=== PATIENT | female | born 2000 | race Caucasian/White ===

== ENCOUNTER 2018-12-06 06:00 | Inpatient (IN) | payer BC, MEDICAID ==
[2018-12-06] VITALS (40 sets, daily range): BP systolic 104–147; BP diastolic 52–96; PULSE 64–130; TEMP 98.2–98.9
[~2018-12-06] VITALS: Ht 162.6 cm; Wt 115.5 kg
--- NOTE | 2018-12-06 07:20 | NUR ---
Patient arrives ambulatory with FOB for scheduled induction of labor. Patient denies contractions, ROM or vaginal bleeding. Patient reports normal movement. Patient changes into gown, EFM explained and placed. VS obtained. Plan of care and induction reviewed with patient. Patient denies questions and agrees to plan. 0740- IV started in LW, labs obtained. LR infusing per protocol. Assessment completed. Consents explained and signed. 0745- Dr. Carcamo at bedside. Vertex presentation confirmed via bedside u/s by physician. SVE per provider /-2, BOW intact. Discussing plan of care for Pitocin induction and physician will AROM this afternoon. Patient deines questions. 0805- Pitocin and Anita administration reviewed. Patient denies questions. Pitocin started at 2 mU per protocol and order. Anita infusing. See EMAR>
[2018-12-06] MEDS ORDERED: PRENATAL (07:47)
[2018-12-06 08:13] LABS: BASO % 0.2 % (0.0-2.0); EOS % 0.2 % (0-4.0); GRAN # 7.3 (1.4-6.5); GRAN % 67.6 % (42.2-75.2); LYMPH # 2.8 (1.2-3.4); LYMPH % 25.6 % (20.0-51.0); MEAN CELL VOLUME 90 fl (80.0-95.0); MEAN CORPUSCULAR HEMOGLOBIN 30 pg (26.0-32.0); MEAN CORPUSCULAR HGB CONC 34 g/dl (33.0-37.0); MEAN PLATELET VOLUME 11.7 fl (7.4-10.4); MONO # 0.6 (0.1-0.6); MONO % 5.7 % (1.7-9.3); PLATELET COUNT 164 K/mm3 (130-400); RED BLOOD COUNT 3.96 M/mm3 (4.10-5.30); REDCELL DISTRIBUTION WIDTH-CV 15.3 % (11.5-14.5)
[2018-12-06 08:21] LABS: HEMATOCRIT 35.8 % (35.0-45.0)
--- NOTE | 2018-12-06 08:40 | NUR ---
0840- Prolonged FHR deceleration noted lasting approximately four minutes, intermittently to 80 bpm. Patient repositioned RL then LL, Pitocin discontinued and LR bolus infusing. Oxygen via simple mask at 10L. SVE by this RN unchanged. FHR recovers to 155 baseline following interventions. See physician notification. Patient updated on plan of care.
--- NOTE | 2018-12-06 10:50 | NUR ---
Patient up to bathroom. Back on EFM at 1055, FHR noted intermittently to 70 bpm. FHR deceleration noted lasting six minutes. Patient repositioned LL, then RL, SVE unchanged. Pitocin discontinued, Oxygen via simple mask at 10L and LR bolus infusing. Patient repositioned LL and Dr. Carcamo notified of deceleration and interventions. Patient repositioned RL and FHR recovers. Physician will come assess patient shortly. Patient updated on plan of care. Pitocin remains off and patient resting in RL position with oxygen via simple mask.
--- NOTE | 2018-12-06 11:25 | NUR ---
Dr. Carcamo on unit. Reviews FHR strip since admission, including intermittent decelerations. Oxygen removed. 1128- SVE per provider /. Patient consented for AROM. AROM by Dr. Carcamo for large amount of clear fluid. Pericare given and patient repostioned RL. Pitocin remains off. Patient updated on plan of care.
--- NOTE | 2018-12-06 11:55 | NUR ---
1155- Dr. Carcamo updated on patient, requesting epidural. Patient may have epidural. Cheo Bocanegra CRNA notified. LR bolus infusing. 1205- Patient assisted to sit on edge of bed. Difficulty tracing FHR due to maternal position and habitus. Cheo Bocanegra CRNA at bedside. 1216- Epidural test dose by Cheo Bocanegra CRNA. Patient tolerates well, no adverse reactions noted. See anesthesia record. 1220- Patient repositioned LL following epidural. Updated on plan of care and safety.
--- NOTE | 2018-12-06 13:05 | NUR ---
1305- Segundo catheter placed by Ca Salinas, instructor [employer] and [facility]. Prolonged FHR deceleration noted lasting approximately sixteen minutes intermittently to 60 bpm following patient being supine for segundo placement. This RN at bedside, repositioned LL, then RL. SVE /-1. Oxygen via simple mask at 10L and LR infusing. Patient repositioned LL, FSE placed by this RN at 1310. FSE cord replaced at 1323 following difficulty tracing despite correct placement of monitor. Multiple RNs at bedside adjusting u/s during this time, FHR noted intermittently at 60 bpm. Patient to knee chest position. Dr. Carcamo on unit in surgery, notified at 1310 and requested at bedside. Orders for Terbulatine. See EMAR. 1320- Dr. Carcamo called again and requested at bedside for continued prolonged FHR deceleration. Preop shave completed and patient prepped for suspected impending section delivery. 1322- Dr. Carcamo at bedside. SVE per provider /-2. FHR back to baseline at 1322, patient to RL position. Physician remains at bedside discussing plan of care with patient. 1344- Decision for section by patient and provider. Patient taken off EFM and transferred to [facility] OR 2. See intraoperative report.
[2018-12-07 02:26] VITALS: BP 126/63; PULSE 66; TEMP 97.9
[2018-12-07 05:30] VITALS: BP 105/44; PULSE 77
[2018-12-07 07:05] VITALS: BP 119/48; PULSE 76; TEMP 97.4
[2018-12-07 08:15] LABS: HEMATOCRIT 30.2 % (35.0-45.0); HEMOGLOBIN 9.7 g/dl (12.0-15.0)
[2018-12-07] MEDS ORDERED: PERCOCET 325 MG1 TA2 PO (10:41)
[2018-12-07] MEDS ORDERED: IBU600 MG PO (10:41)
[2018-12-07] MEDS ORDERED: FERRO-TIME325 MG PO (10:42)
[2018-12-07 11:20] VITALS: BP 116/52; PULSE 83; TEMP 97.3
[2018-12-07 17:15] VITALS: BP 127/57; PULSE 87; TEMP 98
[2018-12-07 20:30] VITALS: BP 133/51; PULSE 107; TEMP 98.3
[2018-12-08 08:00] VITALS: BP 122/51; PULSE 78; TEMP 97.8
[2018-12-08 16:45] VITALS: BP 128/59; PULSE 71; TEMP 97.8
[2018-12-08 23:00] VITALS: BP 128/56; PULSE 84
[2018-12-09 08:30] VITALS: BP 136/69; PULSE 82; TEMP 97.7
[2018-12-09] MEDS ORDERED: BREASTPUMP MC (11:24)
== END 2018-12-09 15:30 | disposition home or self-care (01) | DRG 788 ==
LOC: LDR 06:00 → OB 07:13
PROVIDERS: ADMIT Obstetrics & Gynecology
PROC: 10D00Z1 Extraction of Products of Conception, Low, Open Approach (ICD-10-PCS; principal; 2018-12-06)
PROC: 3E033VJ Introduction of Other Hormone into Peripheral Vein, Percutaneous Approach (ICD-10-PCS; 2018-12-06)
DX: O48.0 Post-term pregnancy (principal); Z3A.41 41 weeks gestation of pregnancy; Z37.0 Single live birth; O99.824 Streptococcus B carrier state complicating childbirth; O99.214 Obesity complicating childbirth; O76 Abnormality in fetal heart rate and rhythm complicating labor and delivery
CPT/HCPCS: J0690; J1885; J2270; J2405; J2540; J2590; J3010; J3105; J7120